=== PATIENT | female | born 1955 | race Two or more races ===

== ENCOUNTER 2024-10-08 16:36 | Emergency (ER) | payer OTHER ==
[~2024-10-08] VITALS: Ht 152.4 cm; Wt 81.6 kg
[2024-10-08 19:52] LABS: HEMATOCRIT 38.6 % (36.0-45.00); HEMOGLOBIN 13.1 g/dL (12.0-15.00); MEAN CELL VOLUME 80.2 fL (80.00-100.00); MEAN CORPUSCULAR HEMOGLOBIN 27.2 pg (27.00-32.0); MEAN CORPUSCULAR HGB CONC 33.9 g/dl (32.0-36.0); PLATELET COUNT 251 K/uL (150-450); RED BLOOD COUNT 4.82 M/uL (4.00-6.00); RED CELL DISTRIBUTION WIDTH 16.3 % (11.5-14.5)
== END 2024-10-08 22:02 | disposition home or self-care (01) ==
LOC: ER 16:36
PROVIDERS: General Practice
DX: R53.81 Other malaise (principal); J06.9 Acute upper respiratory infection, unspecified; R50.9 Fever, unspecified; Z20.822 Contact with and (suspected) exposure to COVID-19; Z88.6 Allergy status to analgesic agent

== ENCOUNTER 2025-01-27 12:22 | Emergency (ER) | payer OTHER ==
[~2025-01-27] VITALS: Ht 157.5 cm; Wt 81.6 kg
[2025-01-27] MEDS ORDERED: ONDANSETRON HCL 2 MG/ML VIAL IV ONE (13:30)
[2025-01-27] MEDS ORDERED: FAMOtidine 10 MG/ML (4ML VIAL) IV ONE (13:30)
[2025-01-27] MEDS ORDERED: LORATADINE 10 MG TABLET PO ONE (13:30)
[2025-01-27] MEDS ORDERED: BENZONATATE 200 MG CAPSULE PO ONE (13:30)
[2025-01-27] MEDS ORDERED: FAMOTIDINE/PF 20 MG/2 ML VIAL ONE (14:06)
[2025-01-27] MEDS ORDERED: ONDANSETRON HCL 2 MG/ML VIAL ONE (14:08)
[2025-01-27 14:46] LABS: HEMATOCRIT 41.9 % (36.0-45.00); HEMOGLOBIN 13.7 g/dL (12.0-15.00); MEAN CELL VOLUME 83.4 fL (80.00-100.00); MEAN CORPUSCULAR HEMOGLOBIN 27.4 pg (27.00-32.0); MEAN CORPUSCULAR HGB CONC 32.8 g/dl (32.0-36.0); PLATELET COUNT 313 K/uL (150-450); RED BLOOD COUNT 5.02 M/uL (4.00-6.00); RED CELL DISTRIBUTION WIDTH 14.5 % (11.5-14.5)
[2025-01-27] MEDS ORDERED: SINGULAIR10 MG PO (15:31)
[2025-01-27] MEDS ORDERED: AZITHROMYCIN500 MG PO (15:31)
[2025-01-27] MEDS ORDERED: PEPCID AC20 MG PO (15:31)
[2025-01-27] MEDS ORDERED: MEDROLPACK PO (15:31)
== END 2025-01-27 15:49 | disposition home or self-care (01) ==
LOC: ER 12:23
PROVIDERS: General Practice
DX: R09.81 Nasal congestion (principal); J00 Acute nasopharyngitis [common cold]; Z20.822 Contact with and (suspected) exposure to COVID-19; Z88.6 Allergy status to analgesic agent

== ENCOUNTER → 2025-09-18 | Emergency (ER) | payer OTHER ==
[~2025-09-18] VITALS: Ht 157.5 cm; Wt 81.6 kg
[~2025-09-18] MED LIST: AZITHROMYCIN500 MG PO; MEDROLPACK PO; PEPCID AC20 MG PO; SINGULAIR10 MG PO
== END | disposition left against medical advice (07) ==
LOC: ER 02:54
DX: Z53.21 Procedure and treatment not carried out due to patient leaving prior to being seen by health care provider (principal)